=== PATIENT | female | born 1985 | race Hispanic/Latino ===

== ENCOUNTER 2017-12-02 06:18 | Emergency (ER) | payer SELFPAY ==
--- NOTE | 2017-12-02 08:16 | RAD ---
2 VIEWS CHEST: Date: 12/02/17 PROVIDED CLINICAL HISTORY: Dyspnea. FINDINGS: Cardiac and mediastinal silhouette is within normal limits. Lungs appear clear. No pleural fluid or p neumothorax apparent. IMPRESSION: No evidence for an acute cardiopulmonary process. POS: [facility]
--- NOTE | 2018-01-03 15:06 | EKG ---
Test Reason : Blood Pressure : / mmHG Vent. Rate : 078 BPM Atrial Rate : 078 BPM P-R Int : 134 ms QRS Dur : 082 ms QT Int : 394 ms P-R-T Axes : 047 -01 021 degrees QTc Int : 449 ms Normal sinus rhythm Normal ECG Confirmed by LB HESS ([id number]), newspaper copy editor SARAH SOLOMON ([id number]) on 01/03/2018 3:06:21 PM Referred By: Confirmed By:LB HESS
== END 2017-12-02 07:34 | disposition home or self-care (01) ==
LOC: ERS 06:18
DX: F41.9 Anxiety disorder, unspecified (principal); F15.90 Other stimulant use, unspecified, uncomplicated
CPT/HCPCS: 71046; 93005

== ENCOUNTER 2021-01-13 18:36 | Emergency (ER) | payer SELFPAY ==
[2021-01-13 19:12] LABS: Bacteria/HPF None Seen HPF (None Seen); Bilirubin Negative (Negative); Blood, Urine 3+ (Negative); Clarity Turbid (Clear); Glucose, Urine (Dipstick) Normal (Negative); Ketone, Urine Negative (Negative); Leukocyte 25 Leu/uL (Negative); Nitrite Negative (Negative); Protein, Urine (Dipstick) 30 mg/dL (Neg-Trace); RBC/HPF Greater than 50 HPF (0-3); Specific Gravity, Urine 1.034 (1.002-1.036); Squamous Epithelial None Seen HPF (0-3); Urobilinogen Normal mg/dL (Less than 2); WBC/HPF None Seen HPF (0-3)
[2021-01-13 19:36] LABS: Hemoglobin 12.6 g/dL (12.0-16.0); Mean Corpuscular HGB CONC 33.1 g/dL (32.0-36.0); Mean Corpuscular Hemoglobin 28.9 pg (27.0-31.0); Mean Corpuscular Volume 87.4 fL (78.0-98.0); RBC Distribution Width 12.4 % (11.5-14.5); Red Blood Cell (RBC) Count 4.35 mill/uL (4.20-5.40)
[2021-01-13 19:53] LABS: BHCG - Serum Negative (NEGATIVE); Pregs Control Background? CLEAR/WHITE (CLR/WHITE); Pregs Control Bar Appear? YES (CONTROL BAR)
[2021-01-13 19:55] LABS: ALT (SGPT) 33 U/L (8-55); AST (SGOT) 21 U/L (5-34); Albumin 4.2 g/dL (3.5-5.0); Alkaline Phosphatase 93 U/L (40-110); Anion Gap 13 mmol/L (10-20); BUN (Urea Nitrogen) 18 mg/dL (7.0-18.7); Bilirubin, Total 0.2 mg/dL (0.2-1.2); Calc. Creatinine Clearance 0 mL/min (70-130); Calcium 9.4 mg/dL (7.8-10.44); Carbon Dioxide 24 mmol/L (22-29); Chloride 108 mmol/L (98-107); Globulin 3.2 g/dL (2.4-3.5); Glucose 121 mg/dL (70-105); Potassium 4.1 mmol/L (3.5-5.1); Protein, Total 7.4 g/dL (6.0-8.3); Sodium 141 mmol/L (136-145)
[2021-01-13 20:08] LABS: #Eosinphils 0.1 thou/uL (0.0-0.7); #Lymphocytes 2.5 thou/uL (1.20-3.40); #Monocytes 0.5 thou/uL (0.11-0.59); #Neutrophils 3.9 thou/uL (1.40-6.50); %Basophils 0.6 % (0.0-1.0); %Eosinophils 1.9 % (0.0-10.0); %Lymphocytes 35.5 % (21.0-51.0); %Monocytes 6.9 % (0.0-10.0); %Neutrophils 55.1 % (42.0-75.0); Giant Platelets SLIGHT; Large Platelets SLIGHT; MDiff Complete? YES; Mean Platelet Volume 12.3 fL (7.4-10.4); Platelet Count 168 thou/uL (130-400); Platelet Morphology Comment Appears Adequate
== END 2021-01-13 20:24 | disposition home or self-care (01) ==
LOC: ERS 18:36
DX: R10.30 Lower abdominal pain, unspecified (principal)
CPT/HCPCS: 36415; 80053; 81003; 81015; 84703; 85025; 99283

== ENCOUNTER 2021-04-13 10:02 | Emergency (ER) | payer SELFPAY ==
[2021-04-13] MEDS ORDERED: Ibuprofen 800 MG TAB ONE (11:30)
== END 2021-04-13 11:40 | disposition home or self-care (01) ==
LOC: ERS 10:02
DX: S83.92XA Sprain of unspecified site of left knee, initial encounter (principal); X58.XXXA Exposure to other specified factors, initial encounter

== ENCOUNTER 2021-05-22 22:47 | Emergency (ER) | payer SELFPAY | END 2021-05-23 00:19 | disposition home or self-care (01) | LOC: ERS 22:47 | DX: J40 Bronchitis, not specified as acute or chronic (principal) | CPT/HCPCS: 71045; 93005; J7620 ==